=== PATIENT | male | born 1980 ===

== ENCOUNTER 2021-01-17 13:10 | Inpatient (IN) | payer OTHER ==
[~2021-01-17] VITALS: Ht 177.8 cm; Wt 90.7 kg
--- NOTE | 2021-01-17 13:46 | NUR ---
PACIENTE REFIERE TENER CBC CON RESULTADOS DE PLAQUETAS EN 104, Y DOLOR CORPORAL DESDE HACE UNOS ANGELES. SE CHELI SIGNOS VITALES Y SE UBICA PACIENTE.
--- NOTE | 2021-01-17 17:31 | NUR ---
PACIENTE ALERTA Y ORIENTADOI EN TOREY ISRRAEL ESFERAS. SE ORIENTA A PACIENTE SOBRE PROCEDIMIENTO Y TX, REFIERE ENTENDER. SE EXTRAE MUESTRAS DE LABORATORIO CON MEDIDAS ASEPTICAS Y ADMINISTRA MEDICAMENTOS JUAN R ORDEN MEDICA.
== END 2021-01-20 10:45 | disposition home or self-care (01) | DRG 866 ==
LOC: ER 13:10 → MEDJ 21:28
PROVIDERS: ADMIT Internal Medicine; ATTEND Internal Medicine
DX: A90 Dengue fever [classical dengue] (principal); D69.3 Immune thrombocytopenic purpura; Z20.822 Contact with and (suspected) exposure to COVID-19